=== PATIENT | male | born 1950 | race Caucasian/White ===

== ENCOUNTER → 2022-05-24 | Outpatient (CLI) | payer MEDICARE, SELFPAY ==
--- NOTE | 2022-05-24 08:26 | CT_ITS ---
PROCEDURE: CT RIGHT KNEE WITHOUT CONTRAST REASON FOR EXAM: Male, 72 years old. Preoperative planning for the [employer] Robotic knee surgery. Knee pain. TECHNIQUE: Transaxial CT of the hip, knee and ankle were obtained. Coronal and sagittal reconstruction images of the knee were provided. Individualized dose optimization techniques were used for this CT. COMPARISON: None. FINDINGS: Standard protocol for the preoperative planning for the [employer] robotic knee surgery was performed. Right longstem total hip arthroplasty. Severe tricompartmental arthrosis of the knee. Moderate arthrosis of the ankle. CT/Extremity Lower without Contra IMPRESSION: Preoperative M[employer] Robotic knee surgical CT evaluation with findings as described above. Electronically Signed: Butch Jalloh, at 10:35 EST ,
== END | disposition home or self-care (01) ==
PROVIDERS: PCP Family Medicine; Referring Provider Orthopaedic Surgery; Visit Provider Orthopaedic Surgery
DX: M17.11 Unilateral primary osteoarthritis, right knee (principal); G89.29 Other chronic pain
CPT/HCPCS: 73700

== ENCOUNTER 2022-06-07 07:42 | Day surgery (SDC) | payer MEDICARE, SELFPAY ==
--- NOTE | 2022-05-24 08:14 | EKG12_ITS ---
Test Reason : PRE OP Blood Pressure : / mmHG Vent. Rate : 056 BPM Atrial Rate : 056 BPM P-R Int : 166 ms QRS Dur : 110 ms QT Int : 448 ms P-R-T Axes : 041 006 048 degrees QTc Int : 432 ms Sinus bradycardia with occasional Premature ventricular complexes Otherwise normal ECG Confirmed by IQRA MILLER, DANNI ([id number]), editor book TAMIKO COELHO ([id number]) on 05/25/2022 8:38:18 AM Referred By: Damián Champagne Confirmed By:DANNI ESCALONA MD
[2022-05-24 09:14] LABS: Absolute Lymphocyte Count 2.92 X10^3/uL (0.83-4.51); Absolute Neutrophil Count 3.4 X10^3/uL (2.0-7.7); Basophil# 0.05 X10^3/uL; Basophil% 0.7 % (0-1); Eosinophil# 0.39 X10^3/uL; Eosinophils% 5.2 % (0-5); Hematocrit 51.1 % (40-54); Lymphocyte # 2.92 X10^3/ul (0.83-4.51); Lymphocyte % 38.7 % (19-41); Mean Corp Hgb Conc 33.3 g/dL (32-36); Mean Corpuscular Hgb 29.9 pg (27.0-32.0); Mean Corpuscular Volume 89.8 fL (80-94); Mean Platelet Vol. 10.2 fl (6.2-12.0); Monocyte# 0.76 X10^3/uL; Monocyte% 10.1 % (0-10); NRBC Flagged by Analyzer 0.3 % (0-5); Neutrophil # 3.38 X10^3/uL (2.7-7.7); Neutrophil % 44.6 % (47-70); Platelet Count 224 K/mm3 (150-450); RBC Distribution Width CV 13.1 % (11.6-14.6); RBC Distribution Width SD 43.1 fl (35.1-43.9); Red Blood Count 5.69 M/mm3 (4.6-6.2); White Blood Count 7.6 K/mm3 (4.4-11.0)
[2022-05-24 09:27] LABS: Hemoglobin A1c 5.6 % (3.8-5.6)
[2022-05-24 09:41] LABS: Albumin, Serum 4.2 g/dL (3.2-5.0); Anion Gap 4 (5-15); BUN 16 mg/dL (7-18); BUN/Creat Ratio 14.4 RATIO (10-20); Calcium,Total 9.5 mg/dL (8.5-10.1); Chloride 105 mmol/L (98-107); Creatinine, Serum 1.11 mg/dL (0.70-1.30); EST Glomerular Filtration Rate 69 mL/min (>60); Est Glom Filt Rate - Afr Amer 84 mL/min (>60); Glucose 97 mg/dL (74-106); Potassium 4.4 mmol/L (3.5-5.1); Sodium Level 141 mmol/L (136-145)
[2022-05-24 09:45] LABS: Magnesium 2.3 mg/dL (1.6-2.6)
[2022-06-07] VITALS (17 sets, daily range): BP systolic 81–152; BP diastolic 54–102; PULSE 60–80; RESP 15–16; TEMP 35.6–36.6; O2SAT 92–100; BMI 36.5
--- NOTE | 2022-06-07 | KNEE_PTH ---
PATIENT: RASHARD SWANN LOC: [facility] [place] U#:[id number] AGE/SX: 72/M ROOM: RE06/07/[address]: Dr. Damián Champagne DO : 1950 BED: DIS: 06/07/2022 SPEC #: [id number] RECD: 06/07/22 15:03 STATUS: JOHN ANTONIO #: [id number] TAYLOR: 06/07/22 00:[address]: Damián Champagne DEPT: SURGICAL PATHOLOGY RECD BY: William Adams ENTERED: 06/08/22 11:14 SP TYPE: TOTAL KNEE OTHR DR: MD Dr. Josi Kirby MD Thomas Janas, PA-C Tissues: Knee, NOS Procedures: Decalcification bone/plaque Surgery Specimen Level IV HEADER OPERATION: ERAS, right total knee replacement robotic arm assist PRE-OP DIAGNOSIS: Osteoarthritis right knee, varus deformity TISSUE SUBMITTED: Right knee bone MICROSCOPIC DIAGNOSIS Bone and tissue of right knee, total knee resection: Severe degenerative joint disease. AM:alexi 06/11/2022 MICROSCOPIC DESCRIPTION Slides are reviewed. GROSS DESCRIPTION Received is one container designated right knee bone. The specimen consists of multiple fragments of little-yellow bone measuring in aggregate 11 x 11 x 4 cm. No soft tissue is identified. A number of bony fragments contain articular surfaces consistent with tibial plateau and femoral condyle and displaying prominent osteophyte formation, eburnation, and bone erosion. Director Digital Sales sections are submitted in one cassette after decalcification. / SJ:alexi 06/08/2022 TC:5 CPT: 17263, 90961
[2022-06-07] MEDS: Magnesium 1 GM over 15 mins IV (08:27)
[2022-06-07] MEDS: Lactated Ringers 1,000 ML 15 ML IV (08:30)
[2022-06-07] MEDS: Acetaminophen 500 MG Tablet 1000 MG PO ×2 (08:48→17:12)
[2022-06-07] MEDS: Gabapentin 600 MG Tablet PO (08:49)
[2022-06-07 08:51] LABS: Bedside Glucose 145 mg/dL (74-106)
--- NOTE | 2022-06-07 09:29 | RAD_ITS ---
STUDY: X-RAY - RIGHT KNEE REASON FOR EXAM: Male, 72 years old. post op -- in PACU TECHNIQUE: 2 view(s) of the knee. COMPARISON: None. FINDINGS: Normal visualized distal femur. Normal visualized proximal tibia and fibula. Normal proximal tibiofibular articulation. Total knee arthroplasty. Normal medial femorotibial compartment. Normal lateral femorotibial compartment. Normal patellofemoral articulation. Gas noted within the joint and subcutaneous tissues. Skin dez noted anteriorly. RAD/Knee 1 or 2 Views IMPRESSION: Status post total knee arthroplasty Electronically Signed: Rui Murphy MD at 23:53 EST Reading Location ID and State: [facility] / [place] , Service support ,
[2022-06-07] MEDS: Cefazolin 2 GM in 0.9% Normal Saline 100 ML IV (10:33)
[2022-06-07] MEDS: TXA 1000mg in NS100 100ml (IVPB at Incision) 660 MG IV (10:43)
[2022-06-07] MEDS: TXA 1000mg in NS100 100ml (IVPB at Closure) 660 MG IV (12:12)
[2022-06-07] MEDS: Lactated Ringers 1,000 ML 125 ML IV (12:30)
[2022-06-07] MEDS: Lactated Ringers 1,000 ML 999 ML IV (12:30)
[2022-06-07] MEDS: Lidocaine 1% (5 ml sdv) 5 ML Vial (12:35)
[2022-06-07] MEDS: Triamcinolone Acetonide 40 MG/ML Vial (12:35)
--- NOTE | 2022-06-07 12:49 | OP.PCM_ITS ---
Report of Operation Date of Procedure: 06/07/22 Pre-Operative Diagnosis: OA bilateral knees Post-Operative Diagnosis: same Surgery/Procedure Performed:: Right TKR, Injection left knee with 4 cc of 1% Lidocaine without epinephrine and 2 cc of Celestone Soluspan Description of Surgical Findings:: Report of Operation Date of Procedure: 06/07/2022 Preoperative Diagnosis: [Bilateral ] knee primary osteoarthritis Postoperative Diagnosis: [Bilateral ] knee primary osteoarthritis Operation: Robotic Assisted Knee Total Arthroplasty, [right ] knee, Intra- articular injection left knee Surgeon: Dr Damián Champagne DO Mig Welder: Butch Rodriguez PA-C Anesthesia: spinal Anesthesiologist: Jordan Myers M.D. Findings: Stable knee with good patella tracking Specimen(s): Bony cuts Complications: No intraoperative complications Estimated Blood Loss: 20 cc IV Fluids: 1000 cc crystalloid Implants Used: 1. [place] Triathlon press fit CR size 7 femur 2. Guzman Triathlon size 7 tibia 3. 38 mm patella 4. 10 mm CS polyethylene Brief History Operative Indications: [ (72 y/o male) ] with history of [bilateral ] knee osteoarthrosis with radiographic findings with loss of joint space, osteophyte formation and subchondral sclerosis. Failed conservative measures as mentioned in the H&P. Discussion of total knee arthroplasty as well as risk and benefits were discussed with the patient including but not limited to blood loss, DVTs, PEs, neurovascular damage, general risk of anesthesia including loss of life, and stiffness or instability were also discussed with the patient. Patient demonstrated understanding and was able to sign informed consent. Procedure: On the date of procedure, patient's [right ] lower extremity was marked in the preoperative area. The patient was then taken back to the operating room where that patient was placed on the table in the supine position. All bony prominences were identified and well-padded. Anesthesia assumed control of the C-spine and airway throughout the remainder of the procedure. A tourniquet was placed on the [right ] upper thigh and the leg was prepped in a sterile fashion. The surgeon then scrubbed at this time. Upon reentering the room, the [right] lower extremity was draped in a standard orthopedic fashion. A timeout was then called and everyone agreed upon the side, the site, the procedure to be performed, patient's identity and antibiotics given. Esmarch bandage was used to exsanguinate the extremity and the tourniquet was placed up to 250 mmHg with the knee in flexion. A midline skin incision was made and a sharp dissection was taken down through skin, subcutaneous tissue and fat. The standard medial parapatellar incision was made and the patella was subluxed laterally. An appropriate deep MCL release was done and the fat pad was resected. Our attention was then directed to the patella. The patella was everted and a flat resection was made. The knee was then flexed up and 2 femoral pins were placed inside the incision and 2 tibial pins were placed outside the incision in the medial tibia bicortically. Once this was completed, the 2 checkpoints in the femur and tibia were placed. Knee was then flexed up and the bony landmarks were registered. Once the was completed, the knee taken through range of motion and manually stressed allowing us to plan for an appropriate tibial cut. The robotic arm was brought into the field sterilely and checkpoint and saw were registered. Based on the patient's deformity, the tibial cut was made in [2 degrees varus ]. At this time, the tensioner was then placed in the joint and ligament tension was checked at 90 degrees and full extension. Based on the patient's ligamentous tension, appropriate adjustments were made to the operative plan and ligament releases were done. Once we were happy with our operative plan with balanced flexion and extension gaps, our attention was directed to the femur. The robot was brought into the field sterilely and registered. Posterior condylar cuts, anterior chamfer cuts and anterior cuts were appropriately made for a [size 7 ] femur. When these were completed, the saws were switched out in the distal femoral and posterior chamfer cuts were made. Protecting the soft tissue throughout this time. A [size 7 ] base plate was selected. The knee was flexed to 90 degrees and soft tissues and posterior osteophytes were removed from the joint. 40 cc of the periarticular injection was injected into the posterior medial corner of the joint. The appropriate trials were then placed on the femur and tibia. A trial polyethylene was trialed to ensure proper balancing and stability of the knee. The appropriate tibial internal rotation was then marked with a bovie. Our attention was then directed to the patella. The lug holes were drilled and the patella trial was placed. Patellar tracking was checked and deemed appropriate. Once we were happy, lug holes were drilled for the femur and trial components were removed. The tibia was subluxed and pinned into place and the keel was punched and drilled appropriately. Final components were verified and opened. The wound was copiously irrigated with normal saline. The components were impacted into place with the tibia, femur and finally the patella. The trial poly component was placed and the knee was placed in full extension. The tracking, alignment and balance were verified and a [10 mm CS ] polyethylene component was placed. Once the final components were placed an Irrisept lavage was performed and the wound was copiously irrigated with normal saline solution and the periarticular injection was given. the wound was closed in a layer-herndon fashion using #1 vicryl interrupted sutures for the arthrotomy, 2-0 interrupted vicryl suture for the subcuticular layer and dez for final skin closure. A sterile compressive dressing was then placed. The left knee was prepared sterilely and then injected with 4 cc of 1 % Lidocaine without epinephrine and 2 cc of Celestone Soluspan. A Band-Aid was then placed over the injection site. The patient was then awakened from anesthesia, transferred to the [facility] and transferred to the PACU for recovery. My physician clinical assistant professor was a vital part of this case. He was important in appropriate retraction during the case, and protection of soft tissues during bony cuts. His intimate knowledge of the case and my steps aided in safe and expedient completion of the procedure as well as appropriate position of the leg during the case. He was also vital in assisting with closure under my direct supervision. Due to the complexity of this case, robotic arm was used to assist in the surgery to improve accuracy and clinical outcomes. Post-op Plan: DVT ppx; ASA 81 mg BID, thigh high compression stockings Follow up: in office in 2 weeks for wound check PT: to start POD #0 at hospital, outpatient PT should be arranged. Preoperative antibiotic: Ancef 2 grams IV Damián Champagne DO Surgeon: Damián Champagne title insurance agent: Butch Rodriguez Type of Anesthesia: Spinal Anesthesiologist: Jordan Myers Specimen's removed: bone Drains: none Estimated Blood Loss (mL): 20 cc Fluids Replaced: 1000 cc crystalloid Admit VTE Documentation VTE Present on Admission: No VTE Mechan Device Prophylaxis: SCD's and Thigh High RAYNA Hose VTE Pharm Prophylaxis ordered?: Yes
--- NOTE | 2022-06-07 16:30 | SUR.PHASEII ---
Patient already up with physical therapy. He looks to be doing well.
== END 2022-06-07 18:24 | disposition home or self-care (01) ==
LOC: SDC 07:43 → AC 07:43
PROVIDERS: Anesthesiology; PCP Family Medicine; Referring Provider Orthopaedic Surgery; Visit Provider Orthopaedic Surgery
PROC: (CPT 27447; principal; 2022-06-07 10:00)
DX: M17.11 Unilateral primary osteoarthritis, right knee (principal); M17.12 Unilateral primary osteoarthritis, left knee; K21.9 Gastro-esophageal reflux disease without esophagitis; E66.9 Obesity, unspecified; Z68.36 Body mass index [BMI] 36.0-36.9, adult; Z79.899 Other long term (current) drug therapy; Z96.649 Presence of unspecified artificial hip joint
CPT/HCPCS: 27447; 20610; 01402; 36415; 73560; 80048; 82040; 82962; 83036; 83735; 85025; 87081; 88305; 88311; 93005; 97162; C1776; J7120; C1781; J2405; J3475